=== PATIENT | female | born 1990 | race Caucasian/White ===

== ENCOUNTER 2020-04-30 18:09 | Emergency (ER) | payer SELFPAY ==
[~2020-04-30] VITALS: Ht 170.2 cm; Wt 63.5 kg
[2020-04-30] MEDS ORDERED: NAPR220C15 PO (18:38)
--- NOTE | 2020-04-30 18:42 | NUR ---
PT AMBULATORY TO ER BED 01 C/O LUE PAIN AND SWELLING X 2 HOURS NOTED S/P TAKING A SHOWER. PT DENIES ANY TRAUMA. DENIES SOB BUT APPEARS ANXIOUS. STABLE VITALS. AWAITING MD SORIANO.
--- NOTE | 2020-04-30 18:44 | NUR ---
TO ER BED 1 AWAITING MD SORIANO
--- NOTE | 2020-04-30 18:56 | NUR ---
U/S TECH AT BEDSIDE FOR LUE DUPLEX ULTRASOUND.
[2020-04-30 19:50] LABS: BASOPHILS % (AUTO) 0.6 % (0.0-2.0); EOSINOPHILS % (AUTO) 1.2 % (0.0-6.0); HEMATOCRIT 38 % (33-45); HEMOGLOBIN 12.9 g/dL (11.5-14.8); LYMPHOCYTES # (AUTO) 1.4 /CMM (0.8-4.8); LYMPHOCYTES % (AUTO) 16.8 % (20.0-44.0); MEAN CORPUSCULAR HGB CONC 34 g/dl (31.0-36.0); MEAN CORPUSCULAR VOLUME 88 fL (82-100); MONOCYTES # (AUTO) 0.6 /CMM (0.1-1.30); MONOCYTES % (AUTO) 6.5 % (2.0-12.0); NEUTROPHILS # (AUTO) 6.5 /CMM (1.8-8.9); NEUTROPHILS % (AUTO) 74.9 % (43.0-81.0); PLATELET COUNT (AUTO) 247 /CMM (150-450); RED BLOOD CELL COUNT(AUTO) 4.28 MIL/uL (4.0-5.2); WHITE BLOOD COUNT (AUTO) 8.6 K/uL (4.3-11.0)
[2020-04-30 20:01] LABS: CALCIUM, SERUM 8.8 mg/dL (8.5-10.1); CREATININE 0.7 mg/dL (0.6-1.3); POTASSIUM 3.1 mmol/L (3.5-5.1)
--- NOTE | 2020-04-30 20:07 | NUR ---
RAC 18G PIV STARTED W/ GOOD BLOOD DRAW.
[2020-04-30] MEDS ORDERED: IV NS 0.9% 250 ML IV ONE (20:14)
[2020-04-30] MEDS ORDERED: CT SWABBABLE VALVE TRANS SET 1 EA INFUS.SET MC ONE (20:14)
[2020-04-30] MEDS ORDERED: IOHEXOL-350 100 ML VIAL IV ONE (20:14)
--- NOTE | 2020-04-30 20:24 | NUR ---
PT WAS TAKEN FOR CT
--- NOTE | 2020-04-30 21:32 | NUR ---
US TECH AT BED SIDE
--- NOTE | 2020-04-30 22:14 | NUR ---
IV removed. Catheter intact and site benign. Pressure and 4x4 applied to site. No bleeding noted.
[2020-04-30] MEDS ORDERED: APIXABAN 5 MG TABLET ONE (23:45)
[2020-04-30] MEDS: APIXABAN 5 MG TABLET PO SCH (23:48)
--- NOTE | 2020-05-01 00:07 | NUR ---
PT is medically stable for D/C. Patient discharged to home in stable condition. Rx and Written and verbal after care instructions given. Patient verbalizes understanding of instruction.
[2020-05-01 00:08] VITALS: BP 116/72
== END 2020-05-01 00:08 | disposition home or self-care (01) ==
LOC: ER 18:13
DX: I82.622 Acute embolism and thrombosis of deep veins of left upper extremity (principal); F10.10 Alcohol abuse, uncomplicated; F17.210 Nicotine dependence, cigarettes, uncomplicated; Y90.9 Presence of alcohol in blood, level not specified; Z60.2 Problems related to living alone; Z79.899 Other long term (current) drug therapy
CPT/HCPCS: 36415; 71275; 80048; 84484; 84702; 85025; 85730; 93005; 93971; 99285; 99406; J7050; Q9967